=== PATIENT | female | born 1955 | race Two or more races ===

== ENCOUNTER 2023-07-19 16:45 | Emergency (ER) | payer OTHER ==
[~2023-07-19] VITALS: Ht 162.6 cm; Wt 63.5 kg
[2023-07-19] MEDS ORDERED: ROSUVASTATIN CA20 MG PO (17:16)
[2023-07-19] MEDS ORDERED: ATORVASTATIN CA40 MG PO (17:16)
== END 2023-07-19 20:46 | disposition home or self-care (01) ==
LOC: ER 16:46
DX: R51.9 Headache, unspecified (principal); Z88.6 Allergy status to analgesic agent; Z91.013 Allergy to seafood
CPT/HCPCS: 70450; 96372; 99284; J1885